=== PATIENT | male | born 2000 | race Caucasian/White ===

== ENCOUNTER 2024-03-19 17:07 | Emergency (ER) | payer OTHER, SELFPAY ==
[2024-03-19 17:10] VITALS: BP 132/84; PULSE 82; TEMP 36.7; O2SAT 98; BMI 29.8
--- NOTE | 2024-03-19 17:21 | ED_ITS ---
HPI HPI - Extremity Injury (Lower) General Chief Complaint: Extremity Injury, Lower Stated Complaint: Lower Extremity Injury/Laceration Time Seen by Provider: 03/19/24 17:08 Source: patient Mode of arrival: walk-in History of Present Illness HPI Narrative: Patient is a 3-year-old male brought to the emergency department by his mother for evaluation of an abrasion and injury to the right ankle. Patient states la night he backed into a cinderblock on the back of his ankle and scraped the medial aspect. He had no deep laceration, no active bleeding. He declined a tetanus update. He states today the area is swollen over the right posterior ankle. He is able to ambulate. No medications prior to arrival Related Data Previous Rx's ?Medication ?Instructions ?Recorded ketorolac 10 mg tablet 10 mg PO TID PRN pain #10 tabs 03/19/24 Allergies Allergy/AdvReac Type Severity Reaction Status Date / Time prednisone Allergy Severe Dizziness Verified 03/19/24 17:18 Opioid HPI Opioid Management Most Recent Pain and Opioid Data: No Data to Display Review of Systems ROS Constitutional Denies: fever or chills Ears, nose, mouth, and throat Denies: throat pain Cardiovascular Denies: chest pain Respiratory Denies: shortness of breath Gastrointestinal Denies: nausea or vomiting Musculoskeletal Reports: extremity pain; Denies: back pain, neck pain or extremity swelling Integumentary/Breast Denies: rash Neurological Denies: numbness in extremities or weakness in extremities Hematologic/Lymphatic Denies: easy bruising or easy bleeding Exam Narrative Exam Narrative: Gen.: Awake, alert, in no distress Head: Normocephalic, atraumatic ENT: Moist mucous membranes Respiratory: No respiratory distress Extremities: Moves extremities equally, tenderness with no appreciable edema or ecchymosis to the right posterior ankle. Normal flexion and extension of the right ankle with superficial abrasion noted over the medial malleolus. Psych: Normal mood and affect Neuro: No focal neuro deficit Skin: Warm, dry, intact Constitutional Vital Signs, click to edit/add: Last Vital Signs Temp 98.1 F 03/19/24 17:10 Pulse 82 03/19/24 17:10 Resp 16 03/19/24 17:10 BP 132/84 03/19/24 17:10 Pulse Ox 98 03/19/24 17:10 O2 Del Method Room Air 03/19/24 17:10 Course Vital Signs Vital signs: Vital Signs Temperature 98.1 F 03/19/24 17:10 Pulse Rate 82 03/19/24 17:10 Respiratory Rate 16 03/19/24 17:10 Blood Pressure 132/84 03/19/24 17:10 Pulse Oximetry 98 03/19/24 17:10 Oxygen Delivery Method Room Air 03/19/24 17:10 Temperature 98.1 F 03/19/24 17:10 Pulse Rate 82 03/19/24 17:10 Respiratory Rate 16 03/19/24 17:10 Blood Pressure 132/84 03/19/24 17:10 Pulse Oximetry 98 03/19/24 17:10 Oxygen Delivery Method Room Air 03/19/24 17:10 MDM - Extremity Injury (Lower) MDM Narrative Medical decision making narrative: X-rays of the right ankle and foot with no evidence of acute process. Patient refused a tetanus update. Bacitracin and Band-Aid applied and he was placed in an [place] wrap, Aircast. Rest, ice, elevate. NSAIDs given for home. Return to the ER if symptoms change or worsen SUPERVISED APC VISIT, PHYSICIAN ATTESTATION: Based on the medical record the care appears appropriate. ? Medical Records Attestation: I reviewed the patient's medical records. Imaging Data XR ankle: Attestation: I have reviewed the pertinent imaging results. Discharge Plan Discharge Chief Complaint: Extremity Injury, Lower Clinical Impression: Contusion of right ankle, Abrasion of right ankle Patient Disposition: Home, Self-Care Time of Disposition Decision: 17:44 Condition: Good Prescriptions / Home Meds: New ketorolac 10 mg tablet 10 mg PO TID PRN (Reason: pain) Qty: 10 0RF Print Language: Prydeinig Instructions: Contusion in Adults (ED), Abrasion (ED) Referrals: Olya Reyes MD [Primary Care Provider] - 1 week Discharge Date/Time: 03/19/24 18:01
--- NOTE | 2024-03-19 17:21 | PC.NURSE ---
right ankle abrasion observed with no swelling to ankle, slight swelling to right foot by toes, pt wearing a o and ankle brace upon arrival. good pedal pulse polo right foot, ice to site.
--- NOTE | 2024-03-19 17:30 | XR_ITS ---
The [address] [address] Patient Name: ALEN ALONSO MRN: [id number] date: 2000 Sex: M Assigned Patient Location: ER Current Patient Location: ED.MAIN Accession/Order Number: [id number] Exam Date: 03/19/2024 17:24 Report Date: 03/19/2024 18:45 At the request of: LAURO PRIETO Procedure: XR ankle RT min 3V EXAM: XR ankle RT min 3V, XR foot RT min 3V HISTORY: injury COMPARISON: None. TECHNIQUE: 3 views right foot and ankle FINDINGS: Bones: No acute fracture or aggressive appearing bony lesion. Joints: Normal alignment. No significant osteoarthritic change. Soft tissues: Unremarkable. XR/XR ankle RT min 3V IMPRESSION: Unremarkable examination. No evidence of fracture. Electronically authenticated by: ONEL STEWARD Date: 03/19/2024 18:45
--- NOTE | 2024-03-19 17:30 | XR_ITS ---
The [address] [address] Patient Name: ALEN ALONSO MRN: [id number] date: 2000 Sex: M Assigned Patient Location: ER Current Patient Location: ED.MAIN Accession/Order Number: [id number] Exam Date: 03/19/2024 17:24 Report Date: 03/19/2024 18:45 At the request of: LAURO PRIETO Procedure: XR foot RT min 3V EXAM: XR ankle RT min 3V, XR foot RT min 3V HISTORY: injury COMPARISON: None. TECHNIQUE: 3 views right foot and ankle FINDINGS: Bones: No acute fracture or aggressive appearing bony lesion. Joints: Normal alignment. No significant osteoarthritic change. Soft tissues: Unremarkable. XR/XR foot RT min 3V IMPRESSION: Unremarkable examination. No evidence of fracture. Electronically authenticated by: ONEL STEWARD Date: 03/19/2024 18:45
[2024-03-19] MEDS: BACITRACIN 0.9 GM PACKET 1 PACKET TOPICAL (17:32)
[2024-03-19 18:00] VITALS: BP 126/86; PULSE 88; O2SAT 98
== END 2024-03-19 18:01 | disposition home or self-care (01) ==
PROVIDERS: Emergency Provider Emergency Medicine; PCP Family Medicine
DX: S90.511A Abrasion, right ankle, initial encounter (principal); S90.01XA Contusion of right ankle, initial encounter; W22.8XXA Striking against or struck by other objects, initial encounter
CPT/HCPCS: 73610; 73630; 99284